=== PATIENT | female | born 1995 | race African-American/Black ===

== ENCOUNTER 2017-06-17 00:14 | Emergency (ER) | payer OTHER ==
[~2017-06-17] VITALS: Ht 160 cm; Wt 95.0 kg
[2017-06-17 00:17] VITALS: BP 129/64; PULSE 73; RESP 16; TEMP 97.8; O2SAT 100
[2017-06-17] MEDS ORDERED: PROMETHAZINE HCL 25 MG TAB PO ONE (02:45)
[2017-06-17] MEDS ORDERED: ACETAMINOPHEN/HYDROcodone 325 MG/5 MG TAB PO ONE (02:45)
--- NOTE | 2017-06-17 02:58 | PD ---
HPI Chief Complaint: Headache Time Seen by Provider: 02:27 (Paddy Roger) Time Seen by Provider: 02:27 (Gutierrez Cook MD) Travel History International Travel<30 days: No Contact w/Intl Traveler<30days: No Traveled to known affect area: No (Paddy Roger) History of Present Illness HPI 21-year-old black female presents emergency department requesting evaluation of headaches and feeling general malaise. She states that she been having headaches on a daily basis now for 2 weeks. She states that the pain waxes and wanes but never really goes away. She states that they are frontal in nature. They'll and aching at times. Currently the pain is a 5/10. She denies any associated visual changes, numbness, tingling or focal weakness. No recent illness. No fever chills. No neck pain or back pain. She does state that she has general malaise, fatigue and dizziness at times. She denies any sinus pain , runny nose congestion. She [facility] approximately one week ago and was told to follow-up with the ER had laboratory tests performed. She denies . 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 She was at band practice evening when her symptoms intensified causing her to come in tonight. (Paddy Roger) [facility] Past Medical History Medical History: Denies Significant Hx Diminished Hearing: No Tetanus Vaccination: < 5 Years Influenza Vaccination: No ?: Not LMP: 06-17-17 (Paddy Roger) Past Surgical History Surgical History: No Previous Surgery (Paddy Roger) Social History Alcohol Use: Yes (occasional) Tobacco Use: No Substance Use: No (Paddy Roger) Allergies-Medications (Allergen,Severity, Reaction): Coded Allergies: No Known Allergies (Unverified , 06/17/17) Reported Meds & Prescriptions Reported Meds & Active Scripts Active No Active Prescriptions or Reported Medications (Gutierrez Cook MD) Review of Systems General / Constitutional: No: Fever Eyes: No: Diploplia, Blurred Vision, Photophobia, Visual changes HENT: No: Headaches, Vertigo, Sore Throat, Congestion Cardiovascular: No: Chest Pain or Discomfort Respiratory: No: Shortness of Breath Gastrointestinal: No: Abdominal Pain Genitourinary: No: Dysuria Musculoskeletal: Positive: Myalgias, Weakness, No: Pain Skin: No Rash Neurologic: Positive: Dizziness, Headache, No: Weakness, Syncope, Focal Abnormalities, Coordination Problem, Paresthesia, Seizures Psychiatric: No: Depression Endocrine: No: Polydipsia Hematologic/Lymphatic: No: Easy Bruising (Paddy Roger) Physical Exam Narrative GENERAL: Well-developed, well-nourished in no apparent distress. Nontoxic appearing. HEAD: Normocephalic, atraumatic. No pain on percussion of the sinuses EYES: Pupils equal round and reactive. Extraocular motions intact. No scleral icterus. No injection or drainage. ENT: Nose clear. Throat without erythema, tonsillar hypertrophy or exudate. Uvula midline. Airway patent. NECK: Trachea midline. Supple, nontender, moves head freely. No central bony tenderness or spasm. CARDIOVASCULAR: Regular rate and rhythm without murmurs, gallops, or rubs. RESPIRATORY: Clear to auscultation. Breath sounds equal bilaterally. No wheezes , rales, or rhonchi. GASTROINTESTINAL: Abdomen soft, non-tender, nondistended. No hepato-splenomegaly , or palpable masses. No guarding. EXTREMITIES: No clubbing, cyanosis, or edema. No joint tenderness. BACK: Nontender without deformity. No flank tenderness. NEUROLOGICAL: Awake, alert and oriented x 3 .Cranial nerves grossly intact. Motor and sensory grossly within normal limits. Normal speech. (Paddy Roger) Data Data Last Documented VS Vital Signs Date Time Temp Pulse Resp B/P (MAP) Pulse Ox O2 Delivery O2 Flow Rate FiO2 06/17/17 05:15 06/17/17 00:17 97.8 73 16 100 Room Air (Gutierrez Cook MD) Orders Orders Ct Brain W/O Iv Contrast(Rout) (06/17/17 02:33) Complete Blood Count With Diff (06/17/17 02:33) Basic Metabolic Panel (Bmp) (06/17/17 02:33) Urinalysis - C+S If Indicated (06/17/17 02:33) Ed Urine Pregnancytest Poc (06/17/17 02:33) Promethazine (Phenergan) (06/17/17 02:45) Acetamin-Hydrocod 325-5 Mg ([place] 5-325 (06/17/17 02:45) Ed Discharge Order (06/17/17 05:07) (Gutierrez Cook MD) Labs Laboratory Tests Test 06/17/17 02:39 06/17/17 02:48 White Blood Count 8.2 TH/MM3 Red Blood Count 3.79 MIL/MM3 Hemoglobin 12.1 GM/DL Hematocrit 35.8 % Mean Corpuscular Volume 94.3 FL Mean Corpuscular Hemoglobin 31.8 PG Mean Corpuscular Hemoglobin Concent 33.7 % Red Cell Distribution Width 13.5 % Platelet Count 280 TH/MM3 Mean Platelet Volume 8.6 FL Neutrophils (%) (Auto) 44.7 % Lymphocytes (%) (Auto) 45.2 % Monocytes (%) (Auto) 7.6 % Eosinophils (%) (Auto) 1.6 % Basophils (%) (Auto) 0.9 % Neutrophils # (Auto) 3.7 TH/MM3 Lymphocytes # (Auto) 3.7 TH/MM3 Monocytes # (Auto) 0.6 TH/MM3 Eosinophils # (Auto) 0.1 TH/MM3 Basophils # (Auto) 0.1 TH/MM3 CBC Comment DIFF FINAL Differential Comment Blood Urea Nitrogen 13 MG/DL Creatinine 0.71 MG/DL Random Glucose 70 MG/DL Calcium Level 8.9 MG/DL Sodium Level 142 MEQ/L Potassium Level 3.6 MEQ/L Chloride Level 107 MEQ/L Carbon Dioxide Level 28.1 MEQ/L Anion Gap 7 MEQ/L Estimat Glomerular Filtration Rate 123 ML/MIN Urine Color YELLOW Urine Turbidity CLEAR Urine pH 6.0 Urine Specific [place] 1.029 Urine Protein TRACE mg/dL Urine Glucose (UA) NEG mg/dL Urine Ketones NEG mg/dL Urine Occult Blood NEG Urine Nitrite NEG Urine Bilirubin NEG Urine Urobilinogen LESS THAN 2.0 MG/DL Urine Leukocyte Esterase SMALL Urine RBC 2 /hpf Urine WBC 2 /hpf Urine Squamous Epithelial Cells 3 /hpf Urine Hyaline Casts 1 /lpf Urine Mucus MOD /lpf Microscopic Urinalysis Comment CULT NOT INDICATED (Gutierrez Cook MD) MDM Medical Decision Making Medical Screen Exam Complete: Yes Emergency Medical Condition: Yes Medical Record Reviewed: Yes Interpretation(s) CT brain: Negative for acute intercranial pathologyCBC & BMP Diagram 06/17/17 02:39 Calcium Level 8.9 UA: Negative Differential Diagnosis MDM: High Differential diagnoses: Subarachnoid hemorrhage, intracranial bleed, aneurysm, pseudotumor, migraine, cluster headache, atypical migraine, temporal arteritis, connective tissue disorder, hypertension, temporal arteritis, sinusitis, sinus headache,malingering Narrative Course CT brain, CBC, chemistry, and UA. Lortab 5 mg and Zofran [address] and laboratory testing are unremarkable. The patient's headache is improving. This is cephalgia, malaise (Paddy Roger) Diagnosis Primary Impression: Cephalgia Qualified Codes: R51 - Headache Additional Impression: Malaise and fatigue Patient Instructions: General Instructions, Narcotic given in the ED Additional Instructions: Rest. Increase fluids. 600 mg of ibuprofen every 6 hours as needed for headache. Follow-up with a medical doctor or the clinic at school and a next 2-3 days for recheck. Med/Other Pt SpecificInfo: No Meds Exist/No RX given (Paddy Roger) Scripts No Active Prescriptions or Reported Meds Disposition: 01 DISCHARGE HOME Condition: Stable Paddy Roger Jun 17, 2017 02:58 Gutierrez Cook MD Jun 17, 2017 05:33
[2017-06-17 03:00] LABS: AUTOMATED NEUTROPHIL # 3.7 TH/MM3 (1.8-7.7); BASOPHIL # 0.1 TH/MM3 (0-0.2); BASOPHIL % 0.9 % (0.0-2.0); EOSINOPHIL # 0.1 TH/MM3 (0-0.4); EOSINOPHIL % 1.6 % (0.0-4.0); HEMATOCRIT 35.8 % (35.0-46.0); HEMOGLOBIN 12.1 GM/DL (11.6-15.3); LYMPH % 45.2 % (9.0-44.0); LYMPHOCYTE # 3.7 TH/MM3 (1.0-4.8); MEAN CELL VOLUME 94.3 FL (80.0-100.0); MEAN CORPUSCULAR HEMOGLOBIN 31.8 PG (27.0-34.0); MEAN CORPUSCULAR HGB CONC 33.7 % (32.0-36.0); MEAN PLATELET VOLUME 8.6 FL (7.0-11.0); MONO % 7.6 % (0.0-8.0); MONOCYTE # 0.6 TH/MM3 (0-0.9); NEUT % 44.7 % (16.0-70.0); PLATELET COUNT 280 TH/MM3 (150-450); RED BLOOD COUNT 3.79 MIL/MM3 (4.00-5.30); RED CELL DISTRIBUTION WIDTH 13.5 % (11.6-17.2); WHITE BLOOD COUNT 8.2 TH/MM3 (4.0-11.0)
[2017-06-17 03:18] LABS: BILIRUBIN, URINE NEG (NEG); BLOOD, URINE NEG (NEG); GLUCOSE,URINE NEG (NEG); HYALINE CAST, URINE 1 /lpf (RARE); KETONE, URINE NEG (NEG); MUCUS URINE MOD /lpf (OCC); NITRITE,URINE NEG (NEG); SQUAMOUS EPITHELIAL CELL URINE 3 /hpf (0-5); URINE COLOR YELLOW (YELLW/STRAW); URINE LEUKOCYTE ESTERASE SMALL (NEG)
[2017-06-17 03:37] LABS: BICARBONATE 28.1 MEQ/L (21.0-32.0); CALCIUM 8.9 MG/DL (8.5-10.1); CREATININE 0.71 MG/DL (0.50-1.00)
--- NOTE | 2017-06-17 03:41 | RADRPT ---
EXAM DATE/TIME: 06/17/2017 03:10 [place] COMPARISON: No previous studies available for comparison. INDICATIONS : Cephalgia. RADIATION DOSE: 56.35 CTDIvol (mGy) MEDICAL HISTORY : None SURGICAL HISTORY : None. ENCOUNTER: Initial ACUITY: 1 day PAIN SCALE: 7/10 LOCATION: cranial TECHNIQUE: Multiple contiguous axial images were obtained of the head. Using automated exposure control and adj ustment of the mA and/or kV according to patient size, radiation dose was kept as low as reasonably a chievable to obtain optimal diagnostic quality images. DICOM format image data is available electro nically for review and comparison. FINDINGS: CEREBRUM: The ventricles are normal for age. No evidence of midline shift, mass lesion, hemorrhage or acute in farction. No extra-axial fluid collections are seen. POSTERIOR FOSSA: The cerebellum and brainstem are intact. The 4th ventricle is midline. The cerebellopontine angle i s unremarkable. EXTRACRANIAL: The visualized portion of the orbits is intact. SKULL: The calvaria is intact. No evidence of skull fracture. CONCLUSION: Negative noncontrast head CT. Willi Dumont MD on June 17, 2017 at 3:39 Board Certified Radiologist. This report was verified electronically.
--- NOTE | 2017-06-17 19:30 | EKG ---
Date Performed: 06/17/2017 Time Performed: 00:46:56 PTAGE: 21 years EKG: Sinus rhythm NORMAL ECG PREVIOUS TRACING : 06/17/2017 00.46 DOCTOR: Real Cross Interpretating Date/Time 06/17/2017 19:28:24
--- NOTE | 2017-06-17 19:30 | EKG ---
Date Performed: 06/17/2017 Time Performed: 00:46:56 PTAGE: 21 years EKG: Sinus rhythm NORMAL ECG PREVIOUS TRACING : 06/17/2017 00.46 DOCTOR: Real Cross Interpretating Date/Time 06/17/2017 19:28:24
--- NOTE | 2017-06-17 19:30 | EKG ---
Date Performed: 06/17/2017 Time Performed: 00:46:56 PTAGE: 21 years EKG: Sinus rhythm NORMAL ECG PREVIOUS TRACING : 06/17/2017 00.46 DOCTOR: Real Cross Interpretating Date/Time 06/17/2017 19:28:24
== END 2017-06-17 05:15 | disposition home or self-care (01) ==
LOC: NEPD 00:14
DX: R51 Headache (principal); R53.81 Other malaise; R53.83 Other fatigue; R42 Dizziness and giddiness
CPT/HCPCS: 70450; 80048; 81001; 84703; 85025; 93005; 99284; Q0169